=== PATIENT | male | born 1980 | race Caucasian/White ===

== ENCOUNTER 2019-10-28 07:48 | Outpatient (CLI) | payer BC, SELFPAY ==
--- NOTE | 2019-10-28 | US_ITS ---
WS: [id number] RIGHT UPPER QUADRANT ULTRASOUND HISTORY: ELEVATED LIVER ENZYMES COMPARISON: None available. Liver: 20 cm in length. The entire liver is poorly visualized. The liver is probably greater than 20 cm in length. Severe hepatic steatosis and coarsened echotexture. The bile ducts and vascular structu res within the liver cannot be identified. Gallbladder: Poorly visualized. CBD: Not adequately visualized. Pancreas: Not visualized. Right kidney: 11.8 cm in length. Normal echogenicity with no mass or hydronephrosis. Aorta and IVC: Mild atherosclerosis aorta. IVC is not visualized. No ascites. US/US liver [id number] IMPRESSION: 1. Technically difficult evaluation of the RIGHT upper quadrant. 2. Marked hepatic steatosis and hepatomegaly. The liver is not adequately imag ed. 3. Very limited evaluation of the RIGHT upper quadrant structures. If further evaluation is necessary consider CT evaluation.
== END 2019-10-28 07:49 | disposition home or self-care (01) ==
LOC: RADOUTREAD 11:20
PROVIDERS: Visit Provider Nurse Practitioner Family
DX: R74.8 Abnormal levels of other serum enzymes (principal); K76.0 Fatty (change of) liver, not elsewhere classified; R16.0 Hepatomegaly, not elsewhere classified
CPT/HCPCS: 76705

== ENCOUNTER → 2019-11-17 08:23 | Outpatient (BNVA) | payer BC, SELFPAY | PROVIDERS: PCP Nurse Practitioner Family; Visit Provider Urology | DX: R79.89 Other specified abnormal findings of blood chemistry (principal) | CPT/HCPCS: 81001 ==

== ENCOUNTER → 2019-12-15 14:40 | Outpatient (BNVA) | payer BC, SELFPAY | PROVIDERS: PCP Nurse Practitioner Family; Visit Provider Internal Medicine Rheumatology | DX: L40.50 Arthropathic psoriasis, unspecified (principal); Z79.899 Other long term (current) drug therapy; Z11.59 Encounter for screening for other viral diseases; Z11.1 Encounter for screening for respiratory tuberculosis; L40.0 Psoriasis vulgaris; E11.65 Type 2 diabetes mellitus with hyperglycemia; Z79.84 Long term (current) use of oral hypoglycemic drugs; F17.290 Nicotine dependence, other tobacco product, uncomplicated; Z79.1 Long term (current) use of non-steroidal anti-inflammatories (NSAID) | CPT/HCPCS: 36415; 80076; 82306; 85651; 86140; 86431; 86480; 86704; 86803; 86812; 87340; 99204 ==

== ENCOUNTER 2019-12-24 11:02 | Outpatient (CLI) | payer BC, SELFPAY ==
--- NOTE | 2019-12-24 11:08 | XR_ITS ---
WS: [id number] LEFT HAND: 3 VIEW(S) TECHNIQUE: PA, oblique and lateral. HISTORY: psoriatic arthritis COMPARISON: None available. No acute fracture or dislocation. There is mild soft tissue edema at the level of the metacarpal heads. Not is much edema as the RIGHT hand. XR/XR hand LT min 3V* [id number] IMPRESSION: Mild soft tissue edema. No erosive changes.
--- NOTE | 2019-12-24 11:08 | XR_ITS ---
WS: [id number] CHEST 2 VIEWS HISTORY: psoriatic arthritis COMPARISON: None available. Lungs: Poor inspiration. Scattered granulomata. No mass or nodule. No pleural effusions. Cardiac size: Normal. Mediastinum/Aorta: Normal mediastinum. Bones: Normal. XR/XR chest 2V* [id number] IMPRESSION: Limited by poor inspiration. Prior granulomatous disease. Otherwise negative.
--- NOTE | 2019-12-24 11:08 | XR_ITS ---
WS: [id number] LEFT FOOT: 3 VIEW(S) TECHNIQUE: AP, oblique and lateral. HISTORY: psoriatic arthritis COMPARISON: None available. No acute fracture or dislocation. No periostitis. Normal tarsal/metatarsal alignment. No soft tissue abnormality or bone destruction. XR/XR foot LT min 3V* [id number] IMPRESSION: Normal LEFT foot.
--- NOTE | 2019-12-24 11:08 | XR_ITS ---
WS: [id number] RIGHT FOOT: 3 VIEW(S) TECHNIQUE: AP, oblique and lateral. HISTORY: psoriatic arthritis COMPARISON: None available. No acute fracture or dislocation. No erosions or periostitis. Normal tarsal/metatarsal alignment. No soft tissue abnormality or bone destruction. XR/XR foot RT min 3V* [id number] IMPRESSION: Normal RIGHT foot.
--- NOTE | 2019-12-24 11:08 | XR_ITS ---
WS: [id number] RIGHT HAND: 3 VIEW(S) TECHNIQUE: PA, oblique and lateral. HISTORY: psoriatic arthritis COMPARISON: 01/20/2019 No acute fracture or dislocation. There is moderate soft tissue edema surrounding the RIGHT metacarpals and phalanges. Minimal erosive changes on the third metacarpal head and proximal third phalanx. No enthesopathy. XR/XR hand RT min 3V* [id number] IMPRESSION: 1. Moderate diffuse soft tissue edema throughout the hand. 2. Early erosive changes at the third metacarpal phalangeal joint.
== END 2019-12-24 11:03 | disposition home or self-care (01) ==
LOC: RADWPI 11:04
PROVIDERS: PCP Nurse Practitioner Family; Visit Provider Internal Medicine Rheumatology
DX: L40.50 Arthropathic psoriasis, unspecified (principal); R60.0 Localized edema
CPT/HCPCS: 71046; 73130; 73630

== ENCOUNTER → 2020-01-03 13:58 | Outpatient (BNVA) | payer BC, SELFPAY | PROVIDERS: PCP Nurse Practitioner Family; Visit Provider Internal Medicine Rheumatology | DX: L40.50 Arthropathic psoriasis, unspecified (principal); L40.0 Psoriasis vulgaris; M12.80 Other specific arthropathies, not elsewhere classified, unspecified site; E11.65 Type 2 diabetes mellitus with hyperglycemia; Z79.899 Other long term (current) drug therapy; F17.210 Nicotine dependence, cigarettes, uncomplicated; Z79.84 Long term (current) use of oral hypoglycemic drugs; Z79.1 Long term (current) use of non-steroidal anti-inflammatories (NSAID); Z79.52 Long term (current) use of systemic steroids | CPT/HCPCS: 99214 ==

== ENCOUNTER → 2020-02-02 08:42 | Outpatient (BNVA) | payer BC, SELFPAY | PROVIDERS: PCP Nurse Practitioner Family; Visit Provider Internal Medicine Rheumatology | DX: Z79.899 Other long term (current) drug therapy (principal) | CPT/HCPCS: 36415; 80076; 82565; 85025; 85651; 86140 ==

== ENCOUNTER → 2020-04-17 08:40 | Outpatient (BNVA) | payer BC, SELFPAY | PROVIDERS: PCP Nurse Practitioner Family; Visit Provider Internal Medicine Rheumatology | DX: L40.50 Arthropathic psoriasis, unspecified (principal); L40.0 Psoriasis vulgaris; Z79.899 Other long term (current) drug therapy; Z79.52 Long term (current) use of systemic steroids; M12.80 Other specific arthropathies, not elsewhere classified, unspecified site; R05 Cough; E11.65 Type 2 diabetes mellitus with hyperglycemia; Z79.84 Long term (current) use of oral hypoglycemic drugs; Z86.16 Personal history of COVID-19; F17.210 Nicotine dependence, cigarettes, uncomplicated | CPT/HCPCS: 99214 ==

== ENCOUNTER 2020-04-17 10:04 | Outpatient (CLI) | payer BC, SELFPAY ==
--- NOTE | 2020-04-17 10:07 | XR_ITS ---
WS: [id number] PROCEDURE: XR chest 2V* [id number] CLINICAL INFORMATION: R05 - Cough COMPARISON: December 24, 2019 FINDINGS: Heart: Normal cardiac silhouette. Lungs: Lungs are clear. No consolidation or pleural fluid. Calcified granulomas. Linear fibrosis left lung base. Bones: Normal visualized bony structures. XR/XR chest 2V* [id number] IMPRESSION: 1. Chronic calcific granulomas. No acute pulmonary infiltrates. 2. No acute chest findings.
== END 2020-04-17 10:05 | disposition home or self-care (01) ==
LOC: RADWPI 10:07
PROVIDERS: PCP Nurse Practitioner Family; Visit Provider Internal Medicine Rheumatology
DX: R05 Cough (principal)
CPT/HCPCS: 71046

== ENCOUNTER → 2020-05-02 08:23 | Outpatient (BNVA) | payer BC, SELFPAY | PROVIDERS: PCP Nurse Practitioner Family; Visit Provider Urology | DX: R79.89 Other specified abnormal findings of blood chemistry (principal) | CPT/HCPCS: 81003; 84403 ==

== ENCOUNTER → 2020-07-11 08:54 | Outpatient (BNVA) | payer BC, SELFPAY | PROVIDERS: PCP Nurse Practitioner Family; Visit Provider Internal Medicine Rheumatology | DX: L40.50 Arthropathic psoriasis, unspecified (principal); L40.0 Psoriasis vulgaris; M12.80 Other specific arthropathies, not elsewhere classified, unspecified site; Z79.52 Long term (current) use of systemic steroids; R74.01 Elevation of levels of liver transaminase levels; E11.65 Type 2 diabetes mellitus with hyperglycemia; Z79.84 Long term (current) use of oral hypoglycemic drugs; F17.210 Nicotine dependence, cigarettes, uncomplicated | CPT/HCPCS: 99214 ==

== ENCOUNTER → 2020-10-23 13:24 | Outpatient (BNVA) | payer BC, SELFPAY | PROVIDERS: PCP Nurse Practitioner Family; Visit Provider Internal Medicine Rheumatology | DX: Z79.899 Other long term (current) drug therapy (principal); M12.80 Other specific arthropathies, not elsewhere classified, unspecified site; Z71.89 Other specified counseling; L40.0 Psoriasis vulgaris; L40.50 Arthropathic psoriasis, unspecified | CPT/HCPCS: 36415; 80076; 82565; 85025; 86140 ==

== ENCOUNTER → 2020-10-26 08:32 | Outpatient (BNVA) | payer BC, SELFPAY | PROVIDERS: PCP Nurse Practitioner Family; Visit Provider Internal Medicine Rheumatology | DX: L40.50 Arthropathic psoriasis, unspecified (principal); L40.0 Psoriasis vulgaris; R74.01 Elevation of levels of liver transaminase levels; E88.81 Metabolic syndrome and other insulin resistance; M12.80 Other specific arthropathies, not elsewhere classified, unspecified site; Z79.1 Long term (current) use of non-steroidal anti-inflammatories (NSAID); E11.65 Type 2 diabetes mellitus with hyperglycemia; Z79.84 Long term (current) use of oral hypoglycemic drugs; F17.220 Nicotine dependence, chewing tobacco, uncomplicated | CPT/HCPCS: 99214 ==

== ENCOUNTER → 2020-10-30 08:03 | Outpatient (BNVA) | payer BC, SELFPAY | PROVIDERS: PCP Nurse Practitioner Family; Visit Provider Urology | DX: R79.89 Other specified abnormal findings of blood chemistry (principal) | CPT/HCPCS: 81003; 84403 ==

== ENCOUNTER 2021-04-13 09:08 | Outpatient (CLI) | payer BC, SELFPAY ==
[2021-04-13 09:37] VITALS: BP 133/85; PULSE 81; RESP 16; TEMP 37; O2SAT 95; BMI 33.5
[2021-04-13 10:01] VITALS: BP 124/80; PULSE 86; RESP 18; TEMP 35.8; O2SAT 94
[2021-04-13 10:50] VITALS: BP 124/82; PULSE 68; RESP 16; TEMP 36.8; O2SAT 95
== END 2021-04-13 09:09 | disposition home or self-care (01) ==
LOC: OPS 09:09
PROVIDERS: PCP Nurse Practitioner Family; Visit Provider Nurse Practitioner Family
DX: U07.1 COVID-19 (principal)
CPT/HCPCS: 96365

== ENCOUNTER → 2021-04-30 15:52 | Outpatient (BNVA) | payer BC, SELFPAY | PROVIDERS: PCP Nurse Practitioner Family; Visit Provider Urology | DX: R79.89 Other specified abnormal findings of blood chemistry (principal) | CPT/HCPCS: 84403 ==

== ENCOUNTER 2023-10-13 13:33 | Emergency (ER) | payer BC, SELFPAY ==
[2023-10-13 13:40] VITALS: BP 156/92; PULSE 129; RESP 18; TEMP 37; O2SAT 96; BMI 29.1
[2023-10-13 14:09] LABS: Basophils % 0.6 %; Eosinophils % 0.6 %; Hematocrit 45.4 % (37-53); Lymphocytes # 1.7 10^3/uL (0.8-4.8); Lymphocytes % 25.1 %; Mean Corpuscular HGB Conc 37.4 g/dL (30-55); Mean Corpuscular Hemoglobin 33.6 pg (27-33); Mean Corpuscular Volume 89.7 fl (82-101); Mean Platelet Volume 9.8 fL (7.4-10.4); Monocytes # 0.5 10^3/uL (0.2-0.9); Monocytes % 7.1 %; Neutrophils % 66.2 %; Nucleated Red Blood Cells % 0 %; Platelet Count 162 10^3/cmm (157-399); Red Blood Count 5.06 10^6/uL (3.85-5.65); Red Cell Distribution Width 11.8 % (12.1-15.1)
[2023-10-13 14:25] LABS: Alanine Aminotransferase 102 U/L (0-41); Albumin Level 4.7 g/dL (3.5-5.2); Alcohol Level 60 mg/dL (0-10); Alkaline Phosphatase 89 U/L (40-130); Anion Gap 24.1 (5-19); Aspartate Amino Transferase 57 U/L (0-40); Blood Urea Nitrogen 8 mg/dL (6-20); Calcium 9.2 mg/dL (8.5-10.5); Carbon Dioxide 20 mmol/L (22-29); Chloride 96 mmol/L (98-107); Creatinine Clr Calc Pharmacy 126.7686; Globulin 3.4 g/dL (1.3-4.6); Glomerular Filtration Rate 91.7 mL/min (90-130); Glucose 246 mg/dL (65-115); Osmolality Calculated 289 mOsm/kg (285-295); Potassium 4.1 mmol/L (3.5-5.1); Sodium 136 mmol/L (136-145); Total Bilirubin 0.8 mg/dL (0.15-1.2); Total Protein 8.1 g/dL (6.6-8.7)
[2023-10-13 14:27] LABS: Acetaminophen < 5.0 ug/mL (10-30); Salicylate < 0.3 mg/dL (3-10)
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
[2023-10-13] MEDS: iohexol 350 mg/mL 500 mL Btl (per mL) IV (15:04)
[2023-10-13 15:48] LABS: Add Urine Microscopic? YES; Bilirubin Urine Neg (Negative); Blood Urine Neg (Negative); Glucose Urine UA 4+ (Normal); Ketones Urine 1+ (Negative); Leukocyte Esterase Urine Negative (Negative); Nitrate Urine Negative (Negative); Protein Urine Trace (Negative); Specific Gravity, Urine 1.015 (1.005-1.030); Urine Appearance Clear (CLEAR); Urine Color Yellow (Yellow); Urobilinogen Urine Norm (Negative); pH Urine 5 (5-7)
[2023-10-13 15:49] LABS: Squamous Epithelial Cell Urine RARE /hpf (0-5); WBC Urine RARE /hpf (0-5)
[2023-10-13 15:50] LABS: Add Urine Culture? No; Hyaline Casts Urine RARE /lpf
[2023-10-13 15:54] LABS: Amphetamines Screen Urine Negative (Negative); Barbiturates Screen Urine Negative (Negative); Benzodiazepines Screen Urine Negative (Negative); Cocaine Screen Urine Negative (Negative); Opiate Screen Urine Positive (Negative); PCP Screen Urine Negative (Negative); THC Screen Urine Negative (Negative)
[2023-10-13 17:30] VITALS: PULSE 119; O2SAT 99
== END 2023-10-13 17:34 | disposition home or self-care (01) ==
PROVIDERS: Emergency Provider Family Medicine; PCP Nurse Practitioner Family
DX: F10.10 Alcohol abuse, uncomplicated (principal); S22.42XA Multiple fractures of ribs, left side, initial encounter for closed fracture; Z79.84 Long term (current) use of oral hypoglycemic drugs; Z87.891 Personal history of nicotine dependence; E11.9 Type 2 diabetes mellitus without complications; V89.2XXA Person injured in unspecified motor-vehicle accident, traffic, initial encounter
CPT/HCPCS: 36415; 71260; 74177; 80053; 80306; 80307; 81001; 85025; 99285; Q9967

== ENCOUNTER 2024-03-25 07:31 | Emergency (ER) | payer BC, SELFPAY ==
[2024-03-25 07:39] VITALS: BP 141/90; PULSE 132; RESP 18; TEMP 36.6; O2SAT 93; BMI 28.5
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
--- NOTE | 2024-03-25 07:47 | CT_ITS ---
WS: [id number] CT LUMBAR SPINE, noncontrast. HISTORY: fall pain TECHNIQUE: Contiguous 2.0 mm axial imaging are performed. Sagittal and coronal reformats are submitte d and reviewed. All CT scans at [facility] use at least one of these dose optimization techni ques: automated exposure control; mA and/or kV adjustment per patient size (includes targeted exams w here dose is matched to clinical indication); or iterative reconstruction. IV contrast: None DLP: 2819.14 mGy.cm COMPARISON: None available. Normal lumbar alignment with no loss of disc space height or vertebral body height. L1-2: Normal. L2-3: Normal. L3-4: Mild facet and ligamentum flavum hypertrophy. Mild central encroachment. L4-5: Mild annular disc bulging with central encroachment. L5-S1: Small central disc protrusion. No high-grade stenosis. Visualized retroperitoneum is normal. CT/CT lumbar spine wo con* [id number] IMPRESSION: 1. No acute lumbar spine fracture. 2. No spinous process fracture. 3. Small central disc protrusion at L5-S1.
--- NOTE | 2024-03-25 07:47 | XR_ITS ---
WS: [id number] LEFT WRIST: 3 VIEW(S) TECHNIQUE: PA, oblique and lateral. HISTORY: pain COMPARISON: None available. No acute fracture or dislocation. No joint space abnormality. No soft tissue swelling. XR/XR wrist LT min 3V* [id number] IMPRESSION: Negative LEFT wrist.
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
--- NOTE | 2024-03-25 07:47 | CT_ITS ---
WS: [id number] CT THORACIC SPINE HISTORY: fall pain TECHNIQUE: Contiguous 2.5 mm axial images are reviewed to thoracic spine. Images are reformatted in s agittal and coronal planes. All CT scans at [facility] use at least one of these dose optimiz ation techniques: automated exposure control; mA and/or kV adjustment per patient size (includes targ eted exams where dose is matched to clinical indication); or iterative reconstruction. DLP: 2819.14 mGy.cm COMPARISON: None available. Normal thoracic alignment. Disc spaces are very slightly narrowed with small thoracic vertebral body osteophytes. Facet joints are normally aligned. No spinous process or transverse process fractures. No disc protrusions or significant stenosis centrally. Visualized ribs adjacent to the thoracic spine appear intact. Ribs will be better evaluated on the chest CT performed on the same day. Dependent ch anges are noted at the lung bases with a few granulomata. No pneumothorax. CT/CT thoracic spin wo con* [id number] IMPRESSION: 1. No acute thoracic spine fracture. 2. No high-grade central stenosis. 3. Visualized lungs demonstrate dependent changes but no pneumothorax. Chest C T to follow.
--- NOTE | 2024-03-25 07:51 | W.ED.FALL ---
HPI - Fall General: Chief Complaint: Fall Stated Complaint: fall, Left side injurys Time Seen by Provider: 03/25/24 07:41 History of Present Illness: 43 yo M is p/w left rib pain after a fall from table last night around 1 am. pt states he landed on his left side and is c/o left rib pain worse with breathing, + head trauma denies LOC, no neck or back pain. also c/o left wrist pain. able to ambulate. not on anticoagulation. Associated symptoms-after fall: Denies abdominal pain or chest pain Related Data Home Medications Medication Instructions Recorded Confirmed atorvastatin 80 mg tablet 80 mg PO DAILY 11/17/19 03/25/24 lisinopril 20 mg tablet 20 mg PO DAILY 11/17/19 03/25/24 metformin 500 mg tablet 500 mg PO BID 11/17/19 03/25/24 venlafaxine 150 mg 150 mg PO DAILY 11/17/19 03/25/24 capsule,extended release 24 hr (Effexor XR) Previous Rx's Medication Instructions Recorded testosterone cypionate 200 mg/mL 200 mg IM .every 10 days #10 mL 07/10/21 intramuscular oil clobetasol 0.025 % topical cream See Rx Instructions topical BID 12/18/22 #100 grams hydrocortisone 2.5 % topical See Rx Instructions .Route 12/18/22 ointment .COMPLEX #28.35 grams adalimumab 40 mg/0.8 mL 40 mg (0.8 mL) SUBCUT .Q7days #4 ea 02/04/24 subcutaneous pen kit (Humira Pen) omeprazole 40 mg capsule,delayed 40 mg PO DAILY #90 caps 02/04/24 release prednisone 10 mg tablet See Rx Instructions PO .COMPLEX 02/04/24 PRN joint pain #30 tabs lidocaine 5 % topical patch 1 patch topical DAILY #15 ea 03/25/24 (Lidoderm) methocarbamol 750 mg tablet 750 mg PO TID #20 tabs 03/25/24 oxycodone-acetaminophen 5 mg-325 1 tab PO Q8H PRN pain #14 tabs 03/25/24 mg tablet (Endocet) Allergies Allergy/AdvReac Type Severity Reaction Status Date / Time No Known Allergies Allergy Verified 10/13/23 13:44 Review of Systems Const: Denies: fever(s), chills or body aches Eyes: Denies: change in vision Card: Denies: chest pain or dyspnea on exertion Resp: Reports: pain on inspiration; Denies: dyspnea GI: Denies: abdominal pain, nausea or vomiting Musc: Reports: extremity pain Neuro: Denies: numbness in extremities or weakness in extremities PFSH ED PFSH: Medical History Metabolic syndrome Transaminitis COVID-19 virus infection resolved HLA-B27 positive arthropathy Diabetes mellitus type 2, uncontrolled Immunization counseling Plaque psoriasis Psoriatic arthritis Psoriasis High risk medication use Palpitations Anxiety Mallet finger of right finger(s) Peroneal tendinitis, left leg Low testosterone Surgical History History of ankle surgery S/P appendectomy Family History Mother , 45-MVA Lupus Father Cancer breast, CAD (coronary artery disease) Diabetes Denies family history of Rheumatoid arthritis Chronic kidney disease (CKD) Lung disease Hypertension Stroke Social History Smoking and tobacco/nicotine status: former use of tobacco/nicotine Alcohol intake: current Alcohol intake frequency: few times a week Substance/Drug Use: never Marital status: Current occupational status: employed Physical Exam Const: COMMON NORMALS: patient oriented x3 HENMT: COMMON NORMALS: normocephalic HEAD & SCALP: normocephalic and contusion (left temporal tenderness) FACE & SINUS: normal facial exam; sinuses not nontender NOSE: Normal septum present Eye: COMMON NORMALS: Equal, round and reactive pupils present, EOMs intact bilaterally and conjunctivae normal GENERAL EYE: appearance normal, both eyes and all related structures CONJUNCTIVA: Yes conjunctivae normal PUPIL: Yes Equal, round and reactive pupils present Neck/C-Spine: COMMON NORMALS: full ROM and no JVD OTHER: no midline c spine tenderness Chest: OTHER: tenderness left ribs but no ecchymosis Resp: COMMON NORMALS: normal respiratory effort OTHER: lungs ctabl Cardio: COMMON NORMALS: no JVD, regular rate and regular rhythm RATE: regular rate RHYTHM: regular rhythm GI: OTHER: mild generalized abd ttp w/o rebound or guarding otherwise Back/Pelvis: OTHER: lower t and l spine tenderness Extremity: NARRATIVE EXTREMITY EXAM: lefft wrist tenderness otherwise msk exam unremarkable, no bony tenderness Neuro: COMMON NORMALS: patient oriented x3 Course Vital Signs: Vital signs: Vital Signs Temperature 97.9 F 03/25/24 07:39 Pulse Rate 114 H 03/25/24 11:04 Respiratory Rate 18 03/25/24 09:29 Blood Pressure 136/89 03/25/24 11:04 Pulse Oximetry 99 03/25/24 11:04 Oxygen Delivery Me thod Room Air 03/25/24 09:29 MDM - Fall Medical Decision Making Workup remarkable for left ninth rib fractures otherwise no pneumothorax no hemothorax no intra-abdominal or intrathoracic injury otherwise. No other injuries on imaging, including negative for left wrist fracture. Initial blood work revealed anion gap and hyperglycemia which has now resolved after fluids. There is no acidosis and DKA has been ruled out. Patient's pain is under control and he is at this time stable for discharge and outpatient follow-up. Lab Data 03/25/24 08:05 03/25/24 09:32 Radiology Impressions Cervical Spine CT 03/25/24 07:47 IMPRESSION: No acute cervical spine fracture. Chest/Abdomen/Pelvis CT 03/25/24 07:47 IMPRESSION: 1. No pneumothorax or pulmonary contusion. 2. Nondisplaced LEFT lateral ninth rib fracture. 3. Hepatic steatosis. 4. No visceral organ injury or laceration. 5. No ascites. 6. No mesenteric injury. Head CT 03/25/24 07:47 IMPRESSION: 1. No acute intracranial hemorrhage or edema. 2. No skull fracture. Lumbar Spine CT 03/25/24 07:47 IMPRESSION: 1. No acute lumbar spine fracture. 2. No spinous process fracture. 3. Small central disc protrusion at L5-S1. Thoracic Spine CT 03/25/24 07:47 IMPRESSION: 1. No acute thoracic spine fracture. 2. No high-grade central stenosis. 3. Visualized lungs demonstrate dependent changes but no pneumothorax. Chest CT to follow. Wrist X-Ray 03/25/24 07:47 IMPRESSION: Negative LEFT wrist. Chest X-Ray 03/25/24 08:07 IMPRESSION: Decreased lung volumes. No pneumothorax. Laboratory Results WBC 7.78 10^3/uL (3.29-11.43) 03/25/24 08:05 RBC 5.09 10^6/uL (3.85-5.65) 03/25/24 08:05 Hgb 16.70 g/dL (11.27-16.99) 03/25/24 08:05 Hct 45.7 % (37-53) 03/25/24 08:05 MCV 89.8 fl (82-101) 03/25/24 08:05 MCH 32.8 pg (27-33) 03/25/24 08:05 MCHC 36.5 g/dL (30-55) 03/25/24 08:05 RDW 12.6 % (12.1-15.1) 03/25/24 08:05 Plt Count 160 10^3/cmm (157-399) 03/25/24 08:05 MPV 9.9 fL (7.4-10.4) 03/25/24 08:05 Neut % (Auto) 73.3 % 03/25/24 08:05 Lymph % (Auto) 17.6 % 03/25/24 08:05 Evans % (Auto) 7.2 % 03/25/24 08:05 Eos % (Auto) 0.9 % 03/25/24 08:05 Baso % (Auto) 0.6 % 03/25/24 08:05 Neut # (Auto) 5.70 10^3/uL (1.8-7.7) 03/25/24 08:05 Lymph # (Auto) 1.4 10^3/uL (0.8-4.8) 03/25/24 08:05 Evans # (Auto) 0.6 10^3/uL (0.2-0.9) 03/25/24 08:05 Eos # (Auto) 0.1 10^3/uL (0.0-0.8) 03/25/24 08:05 Baso # (Auto) 0.1 10^3/uL (0.0-0.1) 03/25/24 08:05 Nucleated RBC % (auto) 0 % 03/25/24 08:05 Nucleated RBCs # 0.0 /100WBC 03/25/24 08:05 PT 12.10 SECONDS (12.1-14.9) 03/25/24 08:05 INR 0.87 (0.8-1.2) 03/25/24 08:05 APTT 25.7 SECONDS (23.9-36.7) 03/25/24 08:05 Specimen Type Venous 03/25/24 09:32 Sample Site Not specified 03/25/24 09:32 Sam Test N/a 03/25/24 09:32 VBG pH 7.37 (7.32-7.42) 03/25/24 09:32 VBG pCO2 40.4 mmHg (41-51) L 03/25/24 09:32 VBG pO2 58.4 mmHg (25-40) H 03/25/24 09:32 VBG HCO3 23.6 mmol/L (24-28) L 03/25/24 09:32 VBG Base Excess -1.6 mmol/L (-3.0-3.0) 03/25/24 09:32 VBG Hematocrit 46.3 % (42-52) 03/25/24 09:32 O2 Delivery Device Room air 03/25/24 09:32 FiO2 21.0 % 03/25/24 09:32 Cloth Presser ID [place] 03/25/24 09:32 Sodium 131 mmol/L (136-145) L 03/25/24 09:32 Potassium 4.3 mmol/L (3.5-5.1) 03/25/24 09:32 Chloride 95 mmol/L (98-107) L 03/25/24 09:32 Carbon Dioxide 22 mmol/L (22-29) 03/25/24 09:32 Anion Gap 18.3 (5-19) 03/25/24 09:32 BUN 9 mg/dL (6-20) 03/25/24 09:32 Creatinine 0.9 mg/dL (0.7-1.2) 03/25/24 09:32 GFR Calculation 91.3 mL/min (90-130) 03/25/24 09:32 Glucose 362 mg/dL (65-115) H 03/25/24 09:32 Calculated Osmolality 285 mOsm/kg (285-295) 03/25/24 09:32 Calcium 8.8 mg/dL (8.5-10.5) 03/25/24 09:32 Total Bilirubin 0.5 mg/dL (0.15-1.2) 03/25/24 09:32 AST 23 U/L (0-40) 03/25/24 09:32 ALT 37 U/L (0-41) 03/25/24 09:32 Alkaline Phosphatase 81 U/L (40-130) 03/25/24 09:32 Total Protein 6.7 g/dL (6.6-8.7) 03/25/24 09:32 Albumin 4.1 g/dL (3.5-5.2) 03/25/24 09:32 Globulin 2.6 g/dL (1.3-4.6) 03/25/24 09:32 Urine Color Yellow (Yellow) 03/25/24 09:55 Urine Appearance Clear (CLEAR) 03/25/24 09:55 Urine pH 5.5 (5-7) 03/25/24 09:55 Ur Specific Filion 1.058 (1.005-1.030) H 03/25/24 09:55 Urine Protein Negative (Negative) 03/25/24 09:55 Urine Glucose (UA) 3+ (Normal) H 03/25/24 09:55 Urine Ketones Trace (Negative) 03/25/24 09:55 Urine Blood Negative (Negative) 03/25/24 09:55 Urine Nitrate Negative (Negative) 03/25/24 09:55 Urine Bilirubin Negative (Negative) 03/25/24 09:55 Urine Urobilinogen 0.2 mg/dL (Negative) 03/25/24 09:55 Ur Leukocyte Esterase Negative (Negative) 03/25/24 09:55 Urine RBC 0-2 /hpf (0-2) 03/25/24 09:55 Urine WBC 0-5 /hpf (0-5) 03/25/24 09:55 Ur Squamous Epith Cells 0-5 /hpf (0-5) 03/25/24 09:55 Amorphous Sediment Not Reportable 03/25/24 09:55 Urine Bacteria None seen /hpf (NONE) 03/25/24 09:55 Hyaline Casts 0-4 /lpf H 03/25/24 09:55 Serum Ketones Negative (Negative) 03/25/24 08:05 All radiology interpretation(s) finalized by discharge Discharge Plan Discharge Patient Disposition: Home Clinical Impression: Closed rib fracture, Left wrist sprain, Acute hyperglycemia Condition: Stable Prescriptions: New oxycodone-acetaminophen [Endocet] 5-325 mg tablet 1 tab PO Q8H PRN (Reason: pain) Qty: 14 0RF lidocaine [Lidoderm] 5 % adhesive patch,medicated 1 patch topical DAILY Qty: 15 0RF Rx Instructions: leave on most painful area for up to 12 hrs methocarbamol 750 mg tablet 750 mg PO TID Qty: 20 0RF No Action metformin 500 mg tablet 500 mg PO BID lisinopril 20 mg tablet 20 mg PO DAILY atorvastatin 80 mg tablet 80 mg PO DAILY venlafaxine [Effexor XR] 150 mg capsule,extended release 24hr 150 mg PO DAILY Humira Pen 40 mg/0.8 mL pen injector kit 40 mg SUBCUT .Q7days Qty: 4 5RF Rx Instructions: 340b omeprazole 40 mg capsule,delayed release(DR/EC) 40 mg PO DAILY Qty: 90 1RF prednisone 10 mg tablet See Rx Instructions PO .COMPLEX PRN (Reason: joint pain) Qty: 30 1RF Rx Instructions: take 1 tab daily for 3-7 days prn joint pain flare PO PRN; clobetasol 0.025 % cream See Rx Instructions TOPICAL BID Qty: 100 2RF Rx Instructions: apply to hands and legs. topical twice a day; NOT for FACE hydrocortisone 2.5 % ointment See Rx Instructions .ROUTE .COMPLEX Qty: 28.35 1RF Dose Instruction: APPLY TO FACE TWO TIMES DAILY NEEDED FOR RASH Rx Instructions: APPLY TO FACE TWO TIMES DAILY NEEDED FOR RASH testosterone cypionate 200 mg/mL oil 200 mg IM .every 10 days Qty: 10 5RF Discharge Orders: Discharge ED (Routine); Ordered 03/25/24 Ordered By: Angel Aguirre Referrals: Malathi Burton FNP [Primary Care Provider] - Patient Instructions: Rib Fracture (ED), Opioid Safety, Pain Management Coding Level of Care Code ED Remote Control Mirror Installer for Tania Browne
[2024-03-25] MEDS: morphine 4 mg/mL SDV 1 mL IVP ×2 (08:03→09:27)
[2024-03-25] MEDS: ondansetron 2 mg/ML SDV 2 mL 4 MG IVP (08:03)
[2024-03-25] MEDS: methocarbamol 750 mg Tablet PO (08:04)
[2024-03-25] MEDS: sodium chloride 0.9% 1,000 ML 999 ML IV ×2 (08:04→09:21)
--- NOTE | 2024-03-25 08:07 | XR_ITS ---
WS: [id number] PORTABLE CHEST HISTORY: chest wall trauma COMPARISON: None available. Decreased lung volumes. LEFT basilar atelectasis. No pleural effusion or pneumothorax. Cardiac size: Normal. Mediastinum/Aorta: Normal mediastinum. Mild deformity of the mid RIGHT clavicle is probably from an old fracture. XR/XR chest 1V portable [id number] IMPRESSION: Decreased lung volumes. No pneumothorax.
[2024-03-25 08:15] LABS: Basophils # 0.1 10^3/uL (0.0-0.1); Basophils % 0.6 %; Eosinophils # 0.1 10^3/uL (0.0-0.8); Eosinophils % 0.9 %; Hematocrit 45.7 % (37-53); Lymphocytes # 1.4 10^3/uL (0.8-4.8); Lymphocytes % 17.6 %; Mean Corpuscular HGB Conc 36.5 g/dL (30-55); Mean Corpuscular Hemoglobin 32.8 pg (27-33); Mean Corpuscular Volume 89.8 fl (82-101); Mean Platelet Volume 9.9 fL (7.4-10.4); Monocytes # 0.6 10^3/uL (0.2-0.9); Monocytes % 7.2 %; Neutrophils % 73.3 %; Nucleated Red Blood Cells % 0 %; Platelet Count 160 10^3/cmm (157-399); Red Blood Count 5.09 10^6/uL (3.85-5.65); Red Cell Distribution Width 12.6 % (12.1-15.1); White Blood Count 7.78 10^3/uL (3.29-11.43)
[2024-03-25] MEDS: iohexol 350 mg/mL 500 mL Btl (per mL) IV (08:30)
[2024-03-25 08:31] LABS: Alanine Aminotransferase 44 U/L (0-41); Albumin Level 4.5 g/dL (3.5-5.2); Alkaline Phosphatase 87 U/L (40-130); Aspartate Amino Transferase 30 U/L (0-40); Blood Urea Nitrogen 9 mg/dL (6-20); Calcium 9.8 mg/dL (8.5-10.5); Carbon Dioxide 19 mmol/L (22-29); Chloride 93 mmol/L (98-107); Creatinine Clr Calc Pharmacy 108.6884; Globulin 3.2 g/dL (1.3-4.6); Glomerular Filtration Rate 80.8 mL/min (90-130); Glucose 402 mg/dL (65-115); Osmolality Calculated 288 mOsm/kg (285-295); Sodium 131 mmol/L (136-145); Total Bilirubin 0.5 mg/dL (0.15-1.2); Total Protein 7.7 g/dL (6.6-8.7)
[2024-03-25 08:33] LABS: Anion Gap 23.1 (5-19); Potassium 4.1 mmol/L (3.5-5.1)
[2024-03-25 08:35] LABS: INR 0.87 (0.8-1.2)
[2024-03-25 08:37] LABS: Partial Thromboplastin Time 25.7 SECONDS (23.9-36.7)
[2024-03-25] MEDS: ketorolac 30 mg/mL INJ 15 MG IVP (09:27)
[2024-03-25 09:29] VITALS: RESP 18; O2SAT 96
[2024-03-25 09:31] LABS: Ketone (Acetest) Serum Negative (Negative)
[2024-03-25 09:40] LABS: Base Excess VBG -1.6 mmol/L (-3.0-3.0); HCO3 VBG 23.6 mmol/L (24-28); PCO2 VBG 40.4 mmHg (41-51); PO2 VBG 58.4 mmHg (25-40); Venous Blood Gas Hematocrit 46.3 % (42-52); pH VBG 7.37 (7.32-7.42)
[2024-03-25 09:44] LABS: Blood Gas Operator Identificat MONRO; Blood Gas Sample Site Not specified; Blood Gas Sample Type Venous; Oxygen Device ROOM AIR
[2024-03-25 09:57] LABS: Alanine Aminotransferase 37 U/L (0-41); Albumin Level 4.1 g/dL (3.5-5.2); Alkaline Phosphatase 81 U/L (40-130); Anion Gap 18.3 (5-19); Aspartate Amino Transferase 23 U/L (0-40); Blood Urea Nitrogen 9 mg/dL (6-20); Calcium 8.8 mg/dL (8.5-10.5); Carbon Dioxide 22 mmol/L (22-29); Chloride 95 mmol/L (98-107); Creatinine Clr Calc Pharmacy 120.7649; Globulin 2.6 g/dL (1.3-4.6); Glomerular Filtration Rate 91.3 mL/min (90-130); Glucose 362 mg/dL (65-115); Osmolality Calculated 285 mOsm/kg (285-295); Potassium 4.3 mmol/L (3.5-5.1); Sodium 131 mmol/L (136-145); Total Bilirubin 0.5 mg/dL (0.15-1.2); Total Protein 6.7 g/dL (6.6-8.7)
[2024-03-25 10:26] LABS: Bilirubin Urine Negative (Negative); Blood Urine Negative (Negative); Glucose Urine UA 3+ (Normal); Ketones Urine Trace (Negative); Leukocyte Esterase Urine Negative (Negative); Nitrate Urine Negative (Negative); Protein Urine Negative (Negative); Urine Appearance Clear (CLEAR); Urine Color Yellow (Yellow); Urobilinogen Urine 0.2 mg/dL (Negative); pH Urine 5.5 (5-7)
[2024-03-25 10:31] LABS: Bacteria Urine None Seen /hpf; Hyaline Casts Urine 0-4 /lpf; RBC Urine 0-2 /hpf (0-2); Squamous Epithelial Cell Urine 0-5 /hpf (0-5); WBC Urine 0-5 /hpf (0-5)
[2024-03-25 10:36] LABS: Specific Gravity, Urine 1.058 (1.005-1.030)
[2024-03-25 11:04] VITALS: BP 136/89; PULSE 114; O2SAT 99
== END 2024-03-25 11:05 | disposition home or self-care (01) ==
PROVIDERS: Emergency Provider Emergency Medicine; PCP Nurse Practitioner Family
DX: S22.42XA Multiple fractures of ribs, left side, initial encounter for closed fracture (principal); S63.502A Unspecified sprain of left wrist, initial encounter; Z79.84 Long term (current) use of oral hypoglycemic drugs; Z87.891 Personal history of nicotine dependence; E11.65 Type 2 diabetes mellitus with hyperglycemia; W19.XXXA Unspecified fall, initial encounter
CPT/HCPCS: 36415; 70450; 71045; 71260; 72125; 72128; 72131; 73110; 74177; 80053; 81001; 82009; 82803; 85025; 85610; 85730; 96361; 96374; 96375; 96376; 99285; J1885; J2270; J2405; J7030